=== PATIENT | male | born 1950 | race Caucasian/White ===

== ENCOUNTER 2018-01-09 08:25 | Observation (INO) | payer OTHER, BC ==
[2018-01-09] VITALS (9 sets, daily range): BP systolic 109–128; BP diastolic 52–60
[~2018-01-09] VITALS: Ht 167.6 cm; Wt 84.7 kg
--- NOTE | ~2018-01-09 | HC ---
[facility] [place] [address] CONSULTATION Name: MILAGROS JAVIER Room #: 208-P [facility] Christo Hogan#: [id number] Admission: 01/09/18 Attend Phys: Sesar Wood MD, Discharge: 01/10/18 Date of : 52 Report #: [id number] THIS REPORT FOR: //name// CC: Sesar Doran DATE OF SERVICE: 01/09/2018 ATTENDING PHYSICIAN: Dr. Lu. REASON FOR CONSULTATION: Chronic kidney disease. HISTORY OF PRESENT ILLNESS: This 67-year-old gentleman with longstanding diabetes and diffuse peripheral arterial disease, developed numbness and tingling, which progressed in his right foot 2 weeks after having a stent placed in his right superficial femoral artery. Flow was diminished or occluded on duplex study done yesterday and this morning, he underwent an arteriogram with limited dye and had new stents placed reopening the flow to the right foot that feels fine now. He has CKD with a creatinine running 2.2-2.5 chronically, followed by a mails supervisor with his longstanding diabetes, hypertension, peripheral arterial disease, history of coronary artery disease, previous bypass. PAST MEDICAL HISTORY: mentioned above. HOME MEDICATIONS: Include aspirin 81 mg daily, Lipitor 40 mg daily, calcitriol 0.25 mcg daily, Plavix 75 mg daily, gabapentin 100 mg t.i.d., insulin, losartan 50 mg daily, sodium bicarbonate 10 mg daily, and vitamin D3 1000 units daily. FAMILY HISTORY: Positive for cancer in a couple of sisters. SOCIAL HISTORY: Heavy smoker until 4 years ago when he quit. REVIEW OF SYSTEMS: GENERAL: He has been feeling reasonably well. EYES: Vision is reasonably good. He does have retinopathy and has had injections in both eyes. ENT: Hearing okay, swallows okay. No mouth ulcers. ENDOCRINE: Positive for the diabetes. RESPIRATORY: Currently having no shortness of breath, asthma or wheezing. CARDIAC: No chest pain or angina. He does have the peripheral arterial disease. He has had stents prior in the arterial circulation to both legs. GASTROINTESTINAL: No nausea, vomiting, diarrhea or bloody stools. GENITOURINARY: Reasonably good urinary stream without hematuria. He has had 1 previous renal stone. NEUROLOGIC: No history of seizure, syncope or stroke, but he does have [facility] [address] [place] [address] CONSULTATION Name: MILAGROS JAVIER Room #: 208-P [facility] Christo Hogan#: [id number] Admission: 01/09/18 Attend Phys: Sesar Wood MD, Discharge: 01/10/18 Date of : 52 Report #: [id number] peripheral neuropathy with some numbness, tingling and pain and he is on some gabapentin for that. PHYSICAL EXAMINATION: GENERAL: This is a reasonably well-appearing gentleman, in good spirits, not short-winded, giving a nice lucid history. SKIN: Unremarkable. SKELETAL: Well-developed, well-nourished, nonobese. HEENT: Extraocular movements are full. Vision is grossly intact. No scleral icterus. Hearing intact. Mucous membranes moist. Tongue and buccal mucosa benign. NECK: Supple, no lymphadenopathy, no carotid bruits. CHEST: Clear to auscultation. HEART: Regular. ABDOMEN: Soft. EXTREMITIES: Show diminished, but present peripheral pulses in both legs and the feet are warm. LABORATORY DATA: Hemoglobin 10.2. Sodium 137, potassium 4.9, chloride bicarbonate 25, BUN 52, creatinine 2.5. ASSESSMENT AND PLAN: 1. Chronic kidney disease, appears to have diabetic nephropathy. Extensive evaluation is not indicated as the patient is followed in an ongoing fashion by an outside mails supervisor. We will watch him carefully overnight. Agree with current IV hydration protocol. Recheck labs in morning. Hopefully, we will get him out tomorrow. Apparently limited amount of dye was used and hopefully we would not run into any trouble here with worsening renal function. 2. Diffuse atherosclerosis with peripheral arterial disease status post stenting of the right superficial femoral artery. 3. Coronary artery bypass by history. 4. Diabetes mellitus with triopathy. 5. History of hypertension. <ELECTRONICALLY SIGNED> By: Sesar Ewing MD 01/12/18 [id number] Sesar Ewing MD /nt
[2018-01-09 08:57] LABS: HEMATOCRIT 31.3 % (42.0-52.0); HEMOGLOBIN 10.2 gm/dL (14.0-18.0); MCH 27.3 pg (26.0-34.0); MCHC 32.6 g/dL (28.0-37.0); MCV 83.6 fL (80.0-100.0); RBC 3.75 mil/uL (4.50-6.00); RDW 14.3 % (10.5-14.5); WBC 5.2 thou/uL (4.0-11.0)
[2018-01-09 09:04] LABS: CREATININE 2.5 mg/dL (0.7-1.3); POTASSIUM 4.9 mmol/L (3.5-5.1)
[2018-01-09] MEDS ORDERED: ATORVASTATIN CA40 MG PO (09:13)
[2018-01-09] MEDS ORDERED: ASPIR 8181 MG PO (09:13)
[2018-01-09] MEDS ORDERED: PLAVIX 75 MG TA75 M1 PO (09:15)
[2018-01-09] MEDS ORDERED: GABAPENTIN 100100 MG PO (09:15)
[2018-01-09] MEDS ORDERED: ROCALTROL0.25 MCG PO (09:15)
[2018-01-09] MEDS ORDERED: LANTUS100 UNIT/M SUBQ (09:16)
[2018-01-09] MEDS ORDERED: HUMALOG100 UNIT/1 SUBQ (09:16)
[2018-01-09] MEDS ORDERED: COZAAR 50 MG TA50 M2 PO (09:19)
[2018-01-09] MEDS ORDERED: VITAMIN D31000 UNIT PO (09:20)
[2018-01-09] MEDS ORDERED: NEUT PO (09:20)
[2018-01-10 04:11] LABS: ALBUMIN 3.2 g/dL (3.4-5.0); CALCIUM 8.6 mg/dL (8.5-10.1); CREATININE 2.3 mg/dL (0.7-1.3); PHOSPHORUS 3.1 mg/dL (2.5-4.9); POTASSIUM 5.4 mmol/L (3.5-5.1)
[2018-01-10 04:24] LABS: HEMATOCRIT 28.3 % (42.0-52.0); HEMOGLOBIN 9.6 gm/dL (14.0-18.0); MCH 28.3 pg (26.0-34.0); MCHC 33.8 g/dL (28.0-37.0); MCV 83.5 fL (80.0-100.0); RBC 3.38 mil/uL (4.50-6.00); RDW 14.5 % (10.5-14.5); WBC 5.8 thou/uL (4.0-11.0)
[2018-01-10 04:37] VITALS: BP 113/60
[2018-01-10 07:08] VITALS: BP 117/54
[2018-01-10] MEDS ORDERED: XARELTO10 MG PO (08:26)
[2018-01-10 08:53] VITALS: BP 117/54
[2018-01-10 09:07] VITALS: BP 117/54
[2018-01-10 11:05] VITALS: BP 104/60
== END 2018-01-10 11:32 | disposition home or self-care (01) ==
LOC: SPEC 08:25 → 2N 15:14 → ENTRNSPT 01-10 11:21 → EDTRNSPTSTS 01-10 11:23 → 2N 01-10 11:32
PROVIDERS: Internal Medicine Nephrology; Nuclear Medicine Nuclear Cardiology
DX: I74.5 Embolism and thrombosis of iliac artery (principal); E11.51 Type 2 diabetes mellitus with diabetic peripheral angiopathy without gangrene; I12.9 Hypertensive chronic kidney disease with stage 1 through stage 4 chronic kidney disease, or unspecified chronic kidney disease; E11.21 Type 2 diabetes mellitus with diabetic nephropathy; N18.9 Chronic kidney disease, unspecified; I25.10 Atherosclerotic heart disease of native coronary artery without angina pectoris; E78.5 Hyperlipidemia, unspecified; Z95.5 Presence of coronary angioplasty implant and graft; Z98.890 Other specified postprocedural states; Z79.4 Long term (current) use of insulin; Z87.891 Personal history of nicotine dependence

== ENCOUNTER 2019-09-23 11:13 | Inpatient (IN) | payer OTHER, BC ==
[2019-09-23] VITALS (19 sets, daily range): BP systolic 70–145; BP diastolic 40–64
[~2019-09-23] VITALS: Ht 167.6 cm; Wt 78.9 kg
--- NOTE | ~2019-09-23 | HC ---
[facility] [place] [address] CONSULTATION Name: MILAGROS JAVIER Room #: 237-P [facility] [place]#: [id number] Admission: 09/23/19 Attend Phys: Sidney Love MD Discharge: Date of : 52 Report #: [id number] THIS REPORT FOR: cc: Олег Doran,Smith Nava MD ~ CC: Sidney Doran DATE OF SERVICE: 09/24/2019 REASON FOR CONSULTATION: We were asked by Dr. Lu to see the patient. HISTORY OF PRESENT ILLNESS: The patient is a 68-year-old admitted on the September 22 with acute arterial occlusive disease. The patient states that he was at home on September 21 and he tried getting out of his chair and he could not bear weight on his right leg because it felt asleep. The right leg and foot were cold and numb throughout the day and the patient tried to shake it off without improvement. The patient recognized this was arterial occlusive disease and called Dr. Lu yesterday morning and he was admitted for evaluation and treatment. The patient has a history of arterial occlusive disease with previous stents. The patient also has a history of coronary artery disease with previous bypass surgery and stent placement. The patient has diabetes mellitus. He is a longtime smoker and has hypertension and chronic renal dysfunction. SOCIAL HISTORY: As mentioned, longtime smoker, claims to have quit. MEDICATIONS: At home include Lipitor, calcitriol, Plavix, gabapentin, insulin, losartan, vitamin D. ALLERGIES: No medication allergies. REVIEW OF SYSTEMS: CONSTITUTIONAL: Denies fever or chills. EYES: Denies vision change. HENT: Denies headache, swallowing problems, sinus difficulty. RESPIRATORY: Denies cough, shortness of breath, blood in sputum. CARDIAC: Denies chest pain or palpitations. GASTROINTESTINAL: Denies nausea, vomiting, abdominal pain, blood loss. GENITOURINARY: Denies hematuria or dysuria. MUSCULOSKELETAL: As mentioned, acute onset of right foot pain. SKIN: Pallor of the right foot. NEUROLOGIC: Chronic diabetic neuropathy in both feet, but acute onset of numbness in the right lower extremity. [facility] [address] [place] [address] CONSULTATION Name: MILAGROS JAVIER Room #: 237-P [facility] ..#: [id number] Admission: 09/23/19 Attend Phys: Sidney Love MD Discharge: Date of : 52 Report #: [id number] PSYCHIATRIC: Denies anxiety or depression. PHYSICAL EXAMINATION: VITAL SIGNS: Temperature 36.6, pulse rate 76, respiratory rate 12, blood pressure 97/43. HEENT: No scleral icterus. No arcus. NECK: No mass. No tenderness. CHEST: Clear to auscultation anteriorly. HEART: Rhythm regular. No murmur. ABDOMEN: Soft. No mass. EXTREMITIES: 2+ popliteal pulses bilaterally. I do not feel dorsalis pedis pulses or posterior tibial pulses, but the patient has movement in both feet and feet are warm. No clubbing, cyanosis or edema. NEUROLOGIC: Full motor, but the patient is in bed after procedure. SKIN: Normal appearing. No rashes. PSYCHIATRIC: Oriented x 3, answers questions. HOSPITAL COURSE: The patient had occlusion of stents in the right superficial femoral artery. These were opened by Dr. Lu with TPA infusions and now the patient has distal flow with no obvious impairment. Infrapopliteal flow is not perfect on arteriogram, but clinically there does not appear to be any issue and the patient feels he is back to normal. ASSESSMENT AND RECOMMENDATIONS: At this point, there is no obvious indication for any surgical procedure. It would be reasonable to make sure the patient is a Plavix responder and check P2Y12 test. If he has not, the Effient may be a better choice. Other than dual antiplatelet therapy, no specific recommendation. Thank you for the consult. By: [id number] Smith Barnett MD /nt
[~2019-09-23 11:13] MED LIST: ASPIR 8181 MG PO; ATORVASTATIN CA40 MG PO; COZAAR 50 MG TA50 M2 PO; GABAPENTIN 100100 MG PO; HUMALOG100 UNIT/1 SUBQ; LANTUS100 UNIT/M SUBQ; NEUT PO; PLAVIX 75 MG TA75 M1 PO; ROCALTROL0.25 MCG PO; VITAMIN D31000 UNIT PO; XARELTO10 MG PO
[2019-09-23 13:16] LABS: ABSOLUTE NEUTROPHILS 3.8 thou/uL (1.4-8.2); BASOPHILS 1.2 % (0.0-2.0); EOSINOPHILS 1.9 % (0.0-3.0); HEMATOCRIT 39.4 % (42.0-52.0); LYMPHOCYTES 14.2 % (24.0-44.0); MCH 31.1 pg (26.0-34.0); MCV 94.4 fL (80.0-100.0); MONOCYTES 10.4 % (1.0-8.0); PLATELET COUNT 198 thou/uL (150-400); POLYS 72.3 % (36.0-66.0); RBC 4.17 mil/uL (4.50-6.00); RDW 13.2 % (10.5-14.5); WBC 5.3 thou/uL (4.0-11.0)
[2019-09-23 13:44] LABS: ALBUMIN 3.8 g/dL (3.4-5.0); CALCIUM 9.6 mg/dL (8.5-10.1); CREATININE 2.2 mg/dL (0.7-1.3); POTASSIUM 4.6 mmol/L (3.5-5.1); TOTAL BILIRUBIN 0.4 mg/dL (<0.1-1.0); TOTAL PROTEIN 7.4 g/dL (6.4-8.2)
--- NOTE | 2019-09-23 20:00 | NUR ---
PT ADMIT TO ICU AT 1648 FTOM IR LEFT FEMEROL SHEATH TPA INFUSION AT 25/HR INTEG AT 6 CC/HR PT AWAKE AND ALERT NEURO INTACT. DENIES PAIN. HAving LARGE BRIGHT RED BLOODY STOOLS WITH CLOTS. DOCTORS AWARE. ABSENT RIGHT PEDAL PULSES. WILL CONT TO MONITOR CLOSELY.
[2019-09-23 20:29] LABS: HEMATOCRIT 35.4 % (42.0-52.0); HEMOGLOBIN 12.2 gm/dL (14.0-18.0)
[2019-09-23 22:50] LABS: HEMATOCRIT 30.8 % (42.0-52.0); HEMOGLOBIN 10.5 gm/dL (14.0-18.0); MCV 94.2 fL (80.0-100.0); RBC 3.27 mil/uL (4.50-6.00); RDW 13.3 % (10.5-14.5); WBC 7.6 thou/uL (4.0-11.0)
[2019-09-24] VITALS (49 sets, daily range): BP systolic 72–134; BP diastolic 32–56
[2019-09-24 03:11] LABS: HEMATOCRIT 30.6 % (42.0-52.0); HEMOGLOBIN 10.2 gm/dL (14.0-18.0)
--- NOTE | 2019-09-24 03:30 | NUR ---
REPEAT HH 10.2 AFTER 1 UNIT PACKED CELLS. ZACKARY TRAIN MASTER NOTIFIED. NO ORDERS
--- NOTE | 2019-09-24 04:15 | NUR ---
SBP 82/50 MAP 60 [employer] REPRESENTATIVE NOTIFIED. LEFT ORDERS FOR 250 NS BOLUS. WILL CONT TO MONITOR.
--- NOTE | 2019-09-24 06:00 | NUR ---
PT AWAKE AND ALERT. HAD A TOTAL OF 9 LARGE BRIGHT RED STOOLS TONIGHT. REMAINS ON TPA AT 25 CC/HR VOIDED 500 CC YUNG URINE THIS SHIFT. SINUS RHYTHM LUNBGS CLEAR O2 SAT 100 % ON ROOM AIR
--- NOTE | 2019-09-24 06:00 | NUR ---
RIGHT POST TIBUAL PULSE DOPPLED NOW CONT ON TPA.
[2019-09-24 06:57] LABS: HEMATOCRIT 27.1 % (42.0-52.0); HEMOGLOBIN 9.1 gm/dL (14.0-18.0); MCH 30.5 pg (26.0-34.0); MCHC 33.4 g/dL (28.0-37.0); MCV 91.3 fL (80.0-100.0); RBC 2.97 mil/uL (4.50-6.00); RDW 16.5 % (10.5-14.5); WBC 5.9 thou/uL (4.0-11.0)
[2019-09-24 07:04] LABS: CREATININE 2.3 mg/dL (0.7-1.3); POTASSIUM 4.9 mmol/L (3.5-5.1)
[2019-09-24 07:14] LABS: CALCIUM 7.1 mg/dL (8.5-10.1)
--- NOTE | 2019-09-24 07:30 | NUR ---
HGB 9.2 DR HORTON NOTIFIED LEFT ORDERS FOR ONE UNIT PACKED CELLS WILL GO Back TO IR THIS AM.
--- NOTE | 2019-09-24 08:37 | NUR ---
chart review, report per rounds, pt going to get another unite of blood, going to IR later today. pt was resting in bed with eyes closed, will cont following as needed for dc needs.
[2019-09-24 14:08] LABS: HEMATOCRIT 27.1 % (42.0-52.0)
--- NOTE | 2019-09-24 16:56 | NUR ---
PT RECEIVED ONE UNIT OF PRBC'S, WITH NO S/S OF REACTION. PT SEEN BY IR TODAY, AND REPERFUSION OF RIGHT LEG WAS ACHIEVED. PT HAS NO MORE PALLOR, DECREASE IN SKIN TEMPRATURE, OR PARASTESIA TO RIGHT LOWER EXTREMITY. PEDAL PULSE IS NOW PALPABLE; +1. PT HAS HAD THREE ROWENA RED BLOOD STOOLS WITH THE PRESENCE OF CLOTS. TPA AND INTEGRILIN HAVE BEEN DC'D. GI WILL POSSIBLY DO A FLEX-SIG TOMORROW IF BLEEDING CONTINUES OVERNIGHT. GROIN SITE IS CLEAN/DRY/INTACT, WITH NO S/S OF BLEEDING. PT PROGRESSING TOWARDS PLAN OF CARE EVIDANCE BY RETURN OF PERIPHERAL PULSES, DECREASE IN NUMBER AND AMOUNT OF STOOLS. WILL CONTINUE TO MONITOR.
[2019-09-25] VITALS (25 sets, daily range): BP systolic 97–131; BP diastolic 34–75
--- NOTE | 2019-09-25 01:27 | NUR ---
NO COMPLAINTS OF PAIN OR DISCOMFORT. ABLE TO MAKE NEEDS KNOW. PT HAD ONE MODERATE BLOODY STOOL WITH CLOTS. PLANS OF A POSSIBLE FLEX-SIG LATER ON TODAY. PULSE IN ALL EXTREMITIES PALPABLE. GROIN SITE CLEAN, DRY AND INTACT. PATIENT TRANSFERED TO ROOM 245. REFUSED TO LET US CONTACT . HE DOES NOT WANT TO WAKE HER. HE WILL CALL HER IN THE A.M. PATIENT PROGRESSING TOWARDS GOAL.
[2019-09-25 04:37] LABS: HEMATOCRIT 23.6 % (42.0-52.0); MCH 30.4 pg (26.0-34.0); MCHC 33.8 g/dL (28.0-37.0); RBC 2.62 mil/uL (4.50-6.00); RDW 16.2 % (10.5-14.5); WBC 6.4 thou/uL (4.0-11.0)
--- NOTE | 2019-09-25 06:39 | NUR ---
RECIEVED REPORT FROM ANGELO AT 0000. PT AOX4, ON RA. DENIES PAIN. DENIES SOA. VSS. AFEBRILE. THREE BLOODY STOOLS DURING THE NIGHT. WILL CONTINUE TO MONITOR.
[2019-09-25] MEDS ORDERED: LATANOPROST 0.2.5 ML OPHTHALMIC (10:19)
[2019-09-25] MEDS ORDERED: COSOPT OCUMETER10 M1 (10:24)
[2019-09-25] MEDS ORDERED: VYZULTA5 ML OPHTHALMIC (10:26)
[2019-09-25] MEDS ORDERED: COSOPT OCUMETER10 ML (10:28)
[2019-09-25] MEDS ORDERED: METRONIDAZOLE500 M4 PO (10:28)
[2019-09-25 11:59] LABS: HEMATOCRIT 22.6 % (42.0-52.0); HEMOGLOBIN 7.6 gm/dL (14.0-18.0)
[2019-09-25 15:11] LABS: CALCIUM 7.4 mg/dL (8.5-10.1); CREATININE 2.3 mg/dL (0.7-1.3)
--- NOTE | 2019-09-25 16:28 | NUR ---
Patient continues to have bloody stools, Hbg now 7.[address] Strong informed. Urine is also blood tinged at times. Left groin site dressing is dry and intact and site is soft.
--- NOTE | 2019-09-25 19:25 | NUR ---
PATIENT CONTINUES TO HAVE BLOODY STOOLS. UP TO COMMODE WITHOUT C/O DIZZINESS.
[2019-09-25 20:53] LABS: HEMATOCRIT 21.2 % (42.0-52.0); HEMOGLOBIN 7.1 gm/dL (14.0-18.0)
[2019-09-26] VITALS (48 sets, daily range): BP systolic 103–140; BP diastolic 35–86
[2019-09-26 05:30] LABS: HEMATOCRIT 24.1 % (42.0-52.0); HEMOGLOBIN 8.2 gm/dL (14.0-18.0); MCV 91.4 fL (80.0-100.0); RBC 2.64 mil/uL (4.50-6.00); RDW 15.5 % (10.5-14.5)
[2019-09-26 05:56] LABS: CALCIUM 7.6 mg/dL (8.5-10.1); CREATININE 1.9 mg/dL (0.7-1.3); MAGNESIUM 1.7 mg/dL (1.8-2.4); POTASSIUM 4.6 mmol/L (3.5-5.1)
--- NOTE | 2019-09-26 10:04 | NUR ---
ALERT AND ORIENTED AND VITALS STABLE, DENIES PAIN. KEPT NPO FOR FLEX SIG. ENEMAS ADMINISTERED ORDERED. AWAITS FOR GI PERSONNEL TO GET HIM TO GI LAB.
--- NOTE | 2019-09-26 11:17 | NUR ---
PATIENT OUT OF UNIT TO GI FOR FLEX SIG
[2019-09-26 12:06] LABS: HEMATOCRIT 24.4 % (42.0-52.0); HEMOGLOBIN 8.3 gm/dL (14.0-18.0)
[2019-09-26 12:40] LABS: % SATURATION 14 % (20-39); IRON 31 ug/dL (65-175); TIBC 222 ug/dL (250-450)
--- NOTE | 2019-09-26 13:03 | NUR ---
PATIENT BACK IN THE ROOM AND IS AWAKE AND ORIENTED AND VITALS STABLE. TOLERATING DIET W/O NAUSEA. WILL CONTINUE TO MONITOR CLOSELY FOR BLEEDING.
[2019-09-26 20:25] LABS: HEMATOCRIT 25.7 % (42.0-52.0); HEMOGLOBIN 8.9 gm/dL (14.0-18.0)
[2019-09-27] VITALS (17 sets, daily range): BP systolic 103–132; BP diastolic 34–80
--- NOTE | 2019-09-27 05:41 | NUR ---
PATIENT ALERT AND ORIENTED X4, NO COMPLAINTS OF PAIN. ENEMA ADMINISTERED THROUGOUT THE NIGHT, PATIENT UP TO COMMODE WITH STANDBY ASSISTANCE. MULTIPLE BOWEL MOVEMENTS THROUGHOUT THE NIGHT, NO SIGN OF BLEEDING NOTED. HGB AND HCT MONITORED. CURRENT HGB 8.9 WHICH IS AN INCREASE FROM PREVIOUS LABWORK. PLAN OF CARE DISCUSSED WITH PATIENT, PATIENT DISCUSSED WANTING TO GO HOME TODAY. STATED HIS IS IN THE HOSPITAL ALSO AND WOULD LIKE TO BE DISCHARGED. NO SIGN OF ACUTE DISTRESS NOTED AT THIS TIME. PATIENT PROGRESSING TOWARD GOALS, WILL CONTINUE TO MONITOR.
--- NOTE | 2019-09-27 08:50 | NUR ---
per report pt going to go home with natali. cm visited with pt rt possible hh " why i just need to get up and walk. my in [facility] and i don't need any home health. i have had this happen in past. just getting iv iron and dr are supposed to let me know if i can go home"/miley. no anticipated needs.
--- NOTE | 2019-09-27 09:45 | NUR ---
Assumed care at 0700. PT is scheduled to take plavix and xarelto at 0900. Nurse paged Dr. Braun who is fire control assistant for GI to clarify order as PT was noted to have a GI bleed and flex sig on 09/26/19. Dr. Braun returned the call and verified that the PT is okay to restart plavix and xarelto today as ordered. PT was given the medications. No signs of active bleeding at this time. Fall precautions in place. Call light is within reach. Nurse will continue to monitor.
[2019-09-27] MEDS ORDERED: ACETAMINOPHEN325 M1 PO (13:00)
[2019-09-27] MEDS ORDERED: XARELTO10 MG PO (13:00)
[2019-09-27] MEDS ORDERED: CARAFATE 11 GM/10 M1 RECTAL (13:00)
[2019-09-27] MEDS ORDERED: SLOW FE142 MG PO (13:00)
--- NOTE | 2019-09-27 14:59 | NUR ---
Discharge education gone over with PT and family at bedside. Both verbalized understanding. PT's sister requested that provider fill out [place] paperwork so that she can take off work to help care for PT and his spouse. Nurse consulted case management in regards to paperwork, however PT does not qualify as he is able to perform ADLs independently. Nurse told family to try and fill out paperwork with Meme Sandoval as PT's condition appears debilitating from what family reports. PT's sister verbalized understanding. Nurse educated PT and sister on how to perform a fleets enema with carafate using demonstration. PT was able to perform teachback. PT left unit via wheelchair and RN escort.
== END 2019-09-27 15:19 | disposition home or self-care (01) | DRG 356 ==
LOC: CATH 11:13 → SJCVCIMAG 11:13 → ICU 17:31
PROVIDERS: Internal Medicine; Internal Medicine Gastroenterology; Nuclear Medicine Nuclear Cardiology; Nurse Practitioner; Nurse Practitioner Adult Health; Nurse Practitioner Family; ADMIT Hospitalist
PROC: B4181ZZ Fluoroscopy of Bilateral Renal Arteries using Low Osmolar Contrast (ICD-10-PCS; principal; 2019-09-24)
PROC: B41F1ZZ Fluoroscopy of Right Lower Extremity Arteries using Low Osmolar Contrast (ICD-10-PCS; principal; 2019-09-24)
PROC: 30233N1 Transfusion of Nonautologous Red Blood Cells into Peripheral Vein, Percutaneous Approach (ICD-10-PCS; principal; 2019-09-24)
PROC: 047K3ZZ Dilation of Right Femoral Artery, Percutaneous Approach (ICD-10-PCS; principal; 2019-09-24)
PROC: 047M3Z1 Dilation of Right Popliteal Artery using Drug-Coated Balloon, Percutaneous Approach (ICD-10-PCS; principal; 2019-09-24)
PROC: 3E05317 Introduction of Other Thrombolytic into Peripheral Artery, Percutaneous Approach (ICD-10-PCS; principal; 2019-09-24)
PROC: 047T3ZZ Dilation of Right Peroneal Artery, Percutaneous Approach (ICD-10-PCS; principal; 2019-09-24)
PROC: 3E0H8GC Introduction of Other Therapeutic Substance into Lower GI, Via Natural or Artificial Opening Endoscopic (ICD-10-PCS; 2019-09-26)
PROC: 0W3P8ZZ Control Bleeding in Gastrointestinal Tract, Via Natural or Artificial Opening Endoscopic (ICD-10-PCS; 2019-09-26)
DX: K55.21 Angiodysplasia of colon with hemorrhage (principal); N17.0 Acute kidney failure with tubular necrosis; I74.3 Embolism and thrombosis of arteries of the lower extremities; D62 Acute posthemorrhagic anemia; K92.1 Melena; I77.1 Stricture of artery; I70.1 Atherosclerosis of renal artery; I25.10 Atherosclerotic heart disease of native coronary artery without angina pectoris; I65.29 Occlusion and stenosis of unspecified carotid artery; E78.00 Pure hypercholesterolemia, unspecified; E78.5 Hyperlipidemia, unspecified; I12.9 Hypertensive chronic kidney disease with stage 1 through stage 4 chronic kidney disease, or unspecified chronic kidney disease; N18.9 Chronic kidney disease, unspecified; E11.22 Type 2 diabetes mellitus with diabetic chronic kidney disease; E11.51 Type 2 diabetes mellitus with diabetic peripheral angiopathy without gangrene; K62.7 Radiation proctitis; Z95.820 Peripheral vascular angioplasty status with implants and grafts; Z95.1 Presence of aortocoronary bypass graft; Z79.899 Other long term (current) drug therapy
CPT/HCPCS: 10078; 62110; 62900; 85076

== ENCOUNTER → 2019-11-05 | Outpatient (CLI) | payer OTHER, BC ==
[~2019-11-05] MED LIST changes: +ACETAMINOPHEN325 M1 PO; +CARAFATE 11 GM/10 M1 RECTAL; +COSOPT OCUMETER10 M1; +COSOPT OCUMETER10 ML; +LATANOPROST 0.2.5 ML OPHTHALMIC; +METRONIDAZOLE500 M4 PO; +SLOW FE142 MG PO; +VYZULTA5 ML OPHTHALMIC
== END ==
LOC: SJCVCIMAG 09:40
DX: I70.203 Unspecified atherosclerosis of native arteries of extremities, bilateral legs (principal); I10 Essential (primary) hypertension; E78.00 Pure hypercholesterolemia, unspecified; I70.1 Atherosclerosis of renal artery; I25.10 Atherosclerotic heart disease of native coronary artery without angina pectoris; E11.9 Type 2 diabetes mellitus without complications; Z95.1 Presence of aortocoronary bypass graft; Z79.4 Long term (current) use of insulin; Z79.899 Other long term (current) drug therapy

== ENCOUNTER → 2020-02-06 | Outpatient (CLI) | payer OTHER, BC | LOC: SJCVCIMAG 07:24 | PROVIDERS: ATTEND Internal Medicine Cardiovascular Disease | DX: I70.203 Unspecified atherosclerosis of native arteries of extremities, bilateral legs (principal); I49.9 Cardiac arrhythmia, unspecified; I25.10 Atherosclerotic heart disease of native coronary artery without angina pectoris; I10 Essential (primary) hypertension; E78.00 Pure hypercholesterolemia, unspecified; E11.9 Type 2 diabetes mellitus without complications; Z79.4 Long term (current) use of insulin; Z87.74 Personal history of (corrected) congenital malformations of heart and circulatory system; Z79.899 Other long term (current) drug therapy; Z87.891 Personal history of nicotine dependence ==

== ENCOUNTER → 2020-10-14 | Outpatient (CLI) | payer OTHER, BC | LOC: SJCVCIMAG 08-25 08:28 | PROVIDERS: ATTEND Internal Medicine Cardiovascular Disease | DX: I70.203 Unspecified atherosclerosis of native arteries of extremities, bilateral legs (principal); I25.10 Atherosclerotic heart disease of native coronary artery without angina pectoris; E11.51 Type 2 diabetes mellitus with diabetic peripheral angiopathy without gangrene; I10 Essential (primary) hypertension; E78.00 Pure hypercholesterolemia, unspecified; I77.9 Disorder of arteries and arterioles, unspecified; E78.2 Mixed hyperlipidemia; Z95.828 Presence of other vascular implants and grafts; Z79.4 Long term (current) use of insulin; Z95.1 Presence of aortocoronary bypass graft; Z79.899 Other long term (current) drug therapy; Z87.891 Personal history of nicotine dependence; Z87.74 Personal history of (corrected) congenital malformations of heart and circulatory system; Z82.49 Family history of ischemic heart disease and other diseases of the circulatory system ==

== ENCOUNTER → 2021-07-06 | Outpatient (CLI) | payer OTHER, BC | LOC: SJCVCIMAG 07:37 | PROVIDERS: ATTEND Internal Medicine Cardiovascular Disease | DX: I65.23 Occlusion and stenosis of bilateral carotid arteries (principal); E11.9 Type 2 diabetes mellitus without complications; I25.10 Atherosclerotic heart disease of native coronary artery without angina pectoris; Z79.4 Long term (current) use of insulin; I77.9 Disorder of arteries and arterioles, unspecified; I73.9 Peripheral vascular disease, unspecified; Z95.1 Presence of aortocoronary bypass graft; R00.1 Bradycardia, unspecified; R07.9 Chest pain, unspecified; I10 Essential (primary) hypertension; E78.5 Hyperlipidemia, unspecified; R06.02 Shortness of breath; F17.210 Nicotine dependence, cigarettes, uncomplicated; C61 Malignant neoplasm of prostate; C15.9 Malignant neoplasm of esophagus, unspecified; Z82.49 Family history of ischemic heart disease and other diseases of the circulatory system; Z79.899 Other long term (current) drug therapy ==